=== PATIENT | female | born 2000 | race Caucasian/White ===

== ENCOUNTER 2022-09-05 18:29 | Outpatient (REF) | payer OTHER, SELFPAY | END 2022-09-05 18:30 | disposition home or self-care (01) | LOC: LBN 18:29 | PROVIDERS: Visit Provider Nurse Practitioner Family | DX: J02.9 Acute pharyngitis, unspecified (principal) | CPT/HCPCS: 87077; 87070 ==

== ENCOUNTER 2022-09-21 17:48 | Outpatient (REF) | payer OTHER, SELFPAY | END 2022-09-21 17:49 | disposition home or self-care (01) | LOC: LBN 17:48 | PROVIDERS: Visit Provider Physician Assistant | DX: J02.9 Acute pharyngitis, unspecified (principal) | CPT/HCPCS: 87070 ==

== ENCOUNTER 2023-02-20 18:35 | Outpatient (REF) | payer BC, SELFPAY ==
[2023-02-20 19:08] LABS: HCT 39.3 % (36.0-46.0); HGB 13.1 g/dL (11.2-15.7); MCHC 33.3 % (32.0-36.0); MCV 87 fL (80-95); MPV 9.1 fL (8.0-11.0); Platelet Count 370 10^3/uL (130-400); RBC 4.52 10^6/uL (3.93-5.22); RDW 12.7 % (11.7-14.6); RDW-SD 40.6 fL; WBC 8.49 10^3/uL (4.4-10.8)
[2023-02-20 19:48] LABS: TSH (W/Ref FT4) 1.06 uIU/mL (0.36-3.74)
[2023-02-20 21:14] LABS: Vitamin D 25 Total 34.4 ng/mL (30-100)
== END 2023-02-20 18:36 | disposition home or self-care (01) ==
LOC: NCHCN 18:35
PROVIDERS: Visit Provider Nurse Practitioner Family
DX: F41.8 Other specified anxiety disorders (principal); R53.83 Other fatigue
CPT/HCPCS: 82306; 85027; 84443

== ENCOUNTER 2023-11-10 13:26 | Outpatient (REF) | payer OTHER, SELFPAY | END 2023-11-10 13:27 | disposition home or self-care (01) | LOC: LBN 13:26 | PROVIDERS: Visit Provider Nurse Practitioner Family | DX: J02.9 Acute pharyngitis, unspecified (principal) | CPT/HCPCS: 87070 ==